=== PATIENT | male | born 1980 ===

== ENCOUNTER 2017-12-29 10:09 | Emergency (ER) | payer OTHER ==
[2017-12-29] MEDS ORDERED: Nitroglycerin 2% Ointment Foilpak UD TOP STA (10:48)
[2017-12-29] MEDS ORDERED: Nitroglycerin 2% Ointment Foilpak UD TOP ONE (11:05)
[2017-12-29] MEDS: Nitroglycerin 2% Ointment Foilpak UD TOP STA ×2 (11:06→11:07)
--- NOTE | 2017-12-29 11:08 | C.PDOC ---
History Of Present Illness 53 year old male is brought to the ED by EMS for evaluation of a sudden onset of chest and back pain. Patient reports he was walking to work when he felt chest tightness, patient bent over and started feeling nauseous and dizzy. Patient states a special police officer saw him and called an ambiance for him. Patient was given 324 mg aspirin and 1 nitroglycerin spray en route. While in the ED patient states his pain in the chest diminished but the pain in his back still presents. Patient initially rated his pain as 10/10 prior to arrival and now in the ED is 6/10. Patient denies fever, chills, vomit, diarrhea, recent travel, SOB. Time Seen by Provider: 12/29/17 10:16 Chief Complaint (Nursing): Chest Pain History Per: Patient History/Exam Limitations: no limitations Onset/Duration Of Symptoms: Hrs Current Symptoms Are (Timing): Still Present Severity: Mild Pain Scale Rating Of: 6 Quality: "Pain" Associated Symptoms: Nausea Modifying Factors: None Exacerbating Factors: Deep Breathing Alleviating Factors: None Nitro Therapy Administered: 1, Per EMS Recent travel outside of the [place]: No Past Medical History Reviewed: Historical Data, Nursing Documentation, Vital Signs Vital Signs: Last Vital Signs Temp 98.2 F 12/29/17 12:32 Pulse 64 12/29/17 12:32 Resp 20 12/29/17 12:32 BP 129/80 12/29/17 12:32 Pulse Ox 100 12/29/17 12:32 - Medical History PMH: No Chronic Diseases Surgical History: No Surg Hx Family History: States: Diabetes (Mother ), Hypertension (Mother) - Social History Hx Alcohol Use: Yes Hx Substance Use: No - Immunization History Hx Influenza Vaccination: No Hx Pneumococcal Vaccination: No Review Of Systems Except As Marked, All Systems Reviewed And Found Negative. Constitutional: Negative for: Fever, Chills Eyes: Negative for: Vision Change Cardiovascular: Positive for: Chest Pain. Negative for: Palpitations Respiratory: Negative for: Cough, Shortness of Breath Gastrointestinal: Negative for: Nausea, Vomiting, Abdominal Pain Musculoskeletal: Positive for: Back Pain Skin: Negative for: Rash Neurological: Positive for: Headache. Negative for: Weakness, Numbness Physical Exam - Physical Exam Appears: Non-toxic, No Acute Distress Skin: Normal Color, Warm, Dry, No Rash Head: Atraumatic, Normacephalic Eye(s): bilateral: Normal Inspection Nose: No Discharge, No Deformity Oral Mucosa: Moist Neck: Normal ROM, Supple Chest: Symmetrical Cardiovascular: Rhythm Regular, No Friction Rub, No Murmur Respiratory: Normal Breath Sounds, No Rales, No Rhonchi, No Wheezing Gastrointestinal/Abdominal: Soft, No Tenderness, No Guarding, No Rebound Back: Other (subscapular tenderness) Extremity: Normal ROM, No Tenderness, No Swelling Pulses: Left Dorsalis Pedis: Normal, Right Dorsalis Pedis: Normal Neurological/Psych: Oriented x3, Normal Speech, Normal Motor Gait: Steady ED Course And Treatment - Laboratory Results Result Diagrams: 12/29/17 11:11 12/29/17 11:11 ECG: Interpreted By Me, Viewed By Me ECG Rhythm: Sinus Bradycardia Rate From EC O2 Sat by Pulse Oximetry: 95 (On RA) Pulse Ox Interpretation: Normal Against Medical Advice - AMA Patient Left Against Medical Advice: The patient declines admission to the hospital and wishes to leave the Emergency Department. This action is against my medical advice. This decision was made with informed refusal. The patient was told that admission to the hospital is necessary. Explanation of the reasons why were discussed. The risks of leaving were explained to the patient and include, but are not limited to, worsening of known or currently unknown conditions, permanent disability and from undiagnosed or untreated conditions. The patient has the capacity to make this informed decision and understands my explanation of the current medical problem and risks of leaving. The patient voluntarily accepts these risks and signed an AMA form documenting our conversation. The patient was given the opportunity to ask questions and reconsider. The patient was encouraged to return to the Emergency Department at any time for further care. Medical Decision Making Medical Decision Making: Plan: * EKG * CXR * Labs * Nitroglycerin 2 ea TOP * Tylenol 650 mg PO Spoke to the hospitalist for possible admission, patient refuses admission and wants to be D/C home. Disposition - Disposition Referrals: [facility] [Outside] Disposition: AGAINST MEDICAL ADVICE Disposition Time: 12:05 Condition: FAIR Additional Instructions: Follow up with the medical doctor within 1-2 days without fail. Return if worsened. 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 - Scribe Statement The provider has reviewed the documentation as recorded by the Scribe Darwin Erickson All medical record entries made by the Anitraibseema were at my direction and personally dictated by me. I have reviewed the chart and agree that the record accurately reflects my personal performance of the history, physical exam, medical decision making, and the department course for this patient. I have also personally directed, reviewed, and agree with the discharge instructions and disposition.
[2017-12-29 11:19] LABS: BASO % 0.6 % (0.0-2.0); EOS # 0.1 K/uL (0.0-0.7); EOS % 1.3 % (0.0-4.0); HEMOGLOBIN 13.9 g/dL (12.0-18.0); LYMPH # 1.7 K/uL (1.0-4.3); LYMPH % 27.5 % (20.0-40.0); MEAN CELL VOLUME 85.3 fL (80.0-94.0); MEAN CORPUSCULAR HEMOGLOBIN 29.5 pg (27.0-31.0); MEAN CORPUSCULAR HGB CONC 34.6 g/dL (33.0-37.0); MEAN PLATELET VOLUME 9.3 fL (7.2-11.7); MONO # 0.3 K/uL (0.0-0.8); MONO % 5.4 % (0.0-10.0); NEUT # 4.2 K/uL (1.8-7.0); NEUT % 65.2 % (50.0-75.0); RBC 4.73 Mil/uL (4.40-5.90); RED CELL DISTRIBUTION WIDTH 13.8 % (11.5-14.5); WHITE BLOOD COUNT 6.4 K/uL (4.8-10.8)
[2017-12-29 11:23] LABS: PROTHROMBIN TIME 11.5 SECONDS (9.7-12.2)
[2017-12-29 11:31] LABS: ALB/GLOB RATIO 1.2 (1.0-2.1); ALBUMIN 4.1 g/dL (3.5-5.0); ALT/SGPT 30 U/L (21-72); AST/SGOT 29 U/L (17-59); BLOOD UREA NITROGEN 14 mg/dL (9-20); CALCIUM 8.9 mg/dl (8.6-10.4); GFR AFRICAN-AMERICAN > 60; GFR NON-AFRICAN AMERICAN > 60
--- NOTE | 2017-12-29 11:44 | RAD ---
HISTORY: chest pain COMPARISON: None available. TECHNIQUE: Chest, one view. FINDINGS: Examination limited by habitus. LUNGS: Vascular crowding due to hypoinflation versus mild pulmonary venous congestion. No focal consolidation. Prominent vessels on end versus scattered calcified granulomas. Please note that chest x-ray has limited sensitivity for the detection of pulmonary masses. PLEURA: No significant pleural effusion identified. No definite pneumothorax . CARDIOVASCULAR: Heart size appears top normal, likely exaggerated by hypo inflation. OSSEOUS STRUCTURES: No acute osseous abnormality identified. VISUALIZED UPPER ABDOMEN: Unremarkable. OTHER FINDINGS: None. IMPRESSION: Vascular crowding due to hypoinflation versus mild pulmonary venous congestion.
[2017-12-29 12:33] VITALS: BP 129/80; PULSE 64; RESP 20; TEMP 98.2
[2017-12-29 19:09] VITALS: O2SAT 95
== END 2017-12-29 12:33 | disposition left against medical advice (07) ==
LOC: C.ER 10:09
DX: R07.9 Chest pain, unspecified (principal)